=== PATIENT | female | born 1985 | race Caucasian/White ===

== ENCOUNTER 2021-10-14 05:13 | Emergency (ER) | payer SELFPAY ==
[2021-10-14 05:14] VITALS: BP 152/98; PULSE 96; RESP 20; TEMP 36.9; O2SAT 97; BMI 33.6
--- NOTE | 2021-10-14 05:40 | CT_ITS ---
FINAL REPORT TECHNIQUE: After the administration of oral and intravenous contrast, axial images were obtained through the abdomen and pelvis by computed tomography. The study was performed with techniques to keep radiation dose as low as reasonably achievable, (ALARA). Individual dose reduction techniques using automated exposure control or adjustment of mA and/or kV according to the patient's size were employed. CLINICAL HISTORY: abd pain w n/v FINDINGS: Abdomen: There are mild chronic changes in the lung bases. The liver parenchyma is homogeneous. There is sludge and stones within the gallbladder.. The spleen, pancreas, adrenals appear unremarkable. There is a well corticated low-attenuation structure within the right kidney measuring 3.8 x 2.6 cm. There is a 1.4 cm nonobstructing stone in the lower pole of the right kidney. The aorta is normal in caliber. There is no free fluid or adenopathy. Pelvis: The appendix is not identified and favored to be surgically absent. The uterus is present and lies midline. There are cysts or follicles in both ovaries. The urinary bladder is unremarkable. There is no free fluid or adenopathy. IMPRESSION: Sludge and stones in the gallbladder. 1.4 cm nonobstructing right renal stone. Benign-appearing right kidney cyst. Cysts or follicles in both ovaries. Reviewed, Interpreted and Dictated by Jun Venegas MD Transcribed by Isha Cowart Authenticated by Jun Venegas MD on 10/14/2021 08:47:56 AM [facility]
[2021-10-14 05:57] LABS: Occult Blood,Gastric Fluid Negative (Negative)
--- NOTE | 2021-10-14 06:11 | HMH.EDNVD ---
ED Disposition Condition on Discharge: Good - Critical Care Critical Care Time: No <Avila Ray Tish - Last Filed: 10/14/21 08:09> Condition on Discharge: Fair - Critical Care Critical Care Time: No <Jonh Mcnair - Last Filed: 10/14/21 11:27> Clinical Impression: IVDU (intravenous drug user) Abdominal pain Qualifiers: Abdominal location: generalized Qualified Code(s): R10.84 - Generalized abdominal pain Disposition: Left Against Medical Advice Instructions: DI for Acute Abdominal Pain Referrals: Provider,Referral, MD [Primary Care Provider] - Attestation: On 10/14/21, the high probability of a clinically significant, sudden or life threatening deterioration of the following system(s) required my full and direct attention, intervention and personal management. The time I documented below is in addition to time spent performing reported procedures but includes the following listed in this critical care notation. Medical Decision Making - Medical Records Medical records reviewed: Yes: I reviewed the patient's medical records. - Ward Inquiry Pt receiving controlled substance: No - Lab Data Lab results reviewed: Yes: I reviewed the patient's lab results. Result diagrams: 10/14/21 06:40 <Avila Ray Tish - Last Filed: 10/14/21 08:09> - Lab Data Result diagrams: 10/14/21 10:15 10/14/21 06:40 - CT Data CT Scan: Abdomen, Pelvis Time Received: 11:[address] Reviewed: Yes: I have reviewed the patient's CT results, I have viewed the radiologist's interpretation - Reevaluation(s) Time: 11:26 <Jonh Mcnair - Last Filed: 10/14/21 11:27> Vital Signs: 10/14/21 05:14 10/14/21 10:47 10/14/21 11:16 Temperature 98.4 F 98.4 F Temperature Source Oral Pulse Rate 89 89 Pulse Rate [Right] 96 H Respiratory Rate 20 18 18 Blood Pressure 130/88 130/88 Blood Pressure [Right Arm] 152/98 H Blood Pressure Mean 100 Blood Pressure Mean [Right Arm] 116 Blood Pressure Source [Right Arm] Automatic Cuff 02 Sat by Pulse Oximetry 97 98 Oxygen Delivery Method Room Air Room Air Room Air - Lab Data Lab Results 10/14/21 05:45: Gastric Occult Blood Negative 10/14/21 06:40: ESR 1 10/14/21 06:40: Sodium 138, Potassium 3.2 L, Chloride 98, Carbon Dioxide 30, Anion Gap 13.2, BUN 16, Creatinine 0.70, Estimated Creat Clear 153, Estimated GFR 95, Est GFR ( Amer) 115, Glucose 134 H, Calcium 8.7, Total Bilirubin 1.8 H, AST 30, ALT 30, Alkaline Phosphatase 138 H, C-Reactive Protein 46.5 H, Total Protein 8.9 H, Albumin 4.2, Globulin 4.7 H, Albumin/Globulin Ratio 0.9 L, Amylase 51, Lipase 31, Procalcitonin 2.38 H, Salicylates 1.0 L, Acetaminophen < 10 L 10/14/21 06:40: Plasma/Serum Alcohol < 10 10/14/21 06:40: Lactate 1.3 10/14/21 06:40: Serum HCG, Qual Negative 10/14/21 06:40: PT 12.1, INR 1.08 10/14/21 10:15: WBC Cancelled, Corrected WBC Cancelled, RBC Cancelled, Hgb Cancelled, Hct Cancelled, MCV Cancelled, MCH Cancelled, MCHC Cancelled, RDW Cancelled, Plt Count Cancelled, MPV Cancelled, Neut % (Auto) Cancelled, Lymph % (Auto) Cancelled, [place] % (Auto) Cancelled, Eos % (Auto) Cancelled, Baso % (Auto) Cancelled, Neut # (Auto) Cancelled, Lymph # (Auto) Cancelled, [place] # (Auto) Cancelled, Eos # (Auto) Cancelled, Baso # (Auto) Cancelled 10/14/21 10:15: WBC 14.3 H, RBC 5.82 H, Hgb 18.7 H, Hct 57.5 H, MCV 98.9, MCH 32.1 H, MCHC 32.5, RDW 14.8, Plt Count 296, MPV 7.8, Neut % (Auto) 83.2 H, Lymph % (Auto) 9.8 L, [place] % (Auto) 3.9, Eos % (Auto) 1.1, Baso % (Auto) 2.1 H, Neut # (Auto) 11.9 H, Lymph # (Auto) 1.4, [place] # (Auto) 0.6, Eos # (Auto) 0.2, Baso # (Auto) 0.3 H 10/14/21 10:46: Urine Color Dk yellow, Urine Appearance Clear, Urine pH 8.5, Ur Specific [place] 1.010, Urine Protein 1+, Urine Glucose (UA) Negative, Urine Ketones Negative, Urine Blood Trace-l, Urine Nitrate Positive, Urine Bilirubin Negative, Urine Urobilinogen 2.0, Ur Leukocyte Esterase Negative, Urine RBC Occasional, Urine WBC 5-10, Ur Squamous Epit
--- NOTE | 2021-10-14 06:20 | PC.NURSE ---
Difficulty placing IV, house notified on the need for u/s guided IV attempt. Labs delayed d/t this.
--- NOTE | 2021-10-14 06:40 | PC.NURSE ---
After 6 attempts, was able to place 22g PV to R wrist.
[2021-10-14 07:06] LABS: Chloride 98 mmol/L (98-107); Potassium 3.2 mmoL/L (3.5-5.1); Sodium 138 mmol/L (136-145)
[2021-10-14 07:08] LABS: Alanine Aminotransferase 30 U/L (12-78); Amylase 51 U/L (30-110); Aspartate Amino Transferase 30 U/L (14-36); Blood Urea Nitrogen 16 mg/dl (7-17); Creatinine Clearance Estimated 153 mL/min (50-200); Estimated Glomerular Filt Rate 95 ml/min (>60); GFR (African American) 115 ML/MIN (>60)
[2021-10-14 07:09] LABS: Albumin Level 4.2 g/dl (3.5-5.0); Albumin/Globulin Ratio 0.9 (1.1-1.8); Alkaline Phosphatase 138 U/L (38-126); Anion Gap 13.2 mEq/L (5-15); Bilirubin,Total 1.8 mg/dl (0.2-1.3); Calcium 8.7 mg/dl (8.4-10.2); Carbon Dioxide 30 mmol/L (22.0-30.0); Ethyl Alcohol < 10 mg/dl (0-10); Globulin 4.7 g/dL (1.3-3.2); Glucose 134 mg/dl (74-100); Lipase 31 U/L (23-300); Total Protein,Serum 8.9 g/dl (6.3-8.2)
[2021-10-14 07:10] LABS: Lactic Acid 1.3 mmol/L (0.7-2.1)
[2021-10-14 07:14] LABS: Acetaminophen < 10 ug/ml (10-30)
[2021-10-14 07:15] LABS: C-Reactive Protein 46.5 mg/L (0-4)
--- NOTE | 2021-10-14 07:15 | PC.NURSE ---
Notified radiology that pt has IV in place and ready when labs back for CT scan. Called Lab at this time and they have not began to run serum despite having labs sent @ 0640. Nuvia in the labs state they are spinning it now and will be about 10 min until complete. aware.
[2021-10-14 07:17] LABS: INR 1.08 (0.9-1.1); Prothrombin Time 12.1 seconds (10.1-12.5)
[2021-10-14 07:20] LABS: Erythrocyte Sedimentation Rate 1 mm/hr (0-20)
--- NOTE | 2021-10-14 07:43 | XR_ITS ---
FINAL REPORT TECHNIQUE: Chest PA & Lateral CLINICAL HISTORY: ivdu FINDINGS: 2 views of the chest were performed. The heart size is normal. The mediastinum is within normal limits. There is no acute cardiopulmonary process. There are no pleural effusions. There is no pneumothorax. The bony thorax appears intact. IMPRESSION: No acute cardiopulmonary process. Reviewed, Interpreted and Dictated by Jun Venegas MD Transcribed by Uriel Bird Authenticated by Jun Venegas MD on 10/14/2021 08:47:57 AM [facility]
[2021-10-14 07:53] LABS: Procalcitonin 2.38 ng/mL (0.0-2.0)
--- NOTE | 2021-10-14 07:55 | PC.NURSE ---
Pt has been tossing and turning in bed, and has been difficult to keep BP cuff in place.
[2021-10-14 07:59] LABS: HCG Qualitative, Serum Negative (Negative)
--- NOTE | 2021-10-14 08:05 | PC.NURSE ---
patient to radiology with broadcast operations technician by wheelchair
--- NOTE | 2021-10-14 08:21 | PC.NURSE ---
patient back from radiology by wheelchair with technical sales director
--- NOTE | 2021-10-14 09:46 | PC.NURSE ---
attempting to recollect cbc per ER MD request- lab staff states our cbc analyzer is now back up. States they have contacted [facility], states they did not have an eta on cbc results from specimen we had sent to them.
--- NOTE | 2021-10-14 09:57 | PC.NURSE ---
Contacted lab to see if they will come down and draw a CBC on patient. I had 1 unsuccessful attempt
[2021-10-14 10:31] LABS: Basophils # 0.3 K/mm3 (0-0.2); Basophils % 2.1 % (0.1-2.0); Eosinophils # 0.2 K/mm3 (0.0-0.4); Eosinophils % 1.1 % (0.1-12.0); Hematocrit 57.5 % (37.0-47.0); Lymphocytes # 1.4 K/mm3 (0.7-4.5); Lymphocytes % 9.8 % (10-50); Mean Corpuscular HGB Conc 32.5 g/dL (31.8-35.4); Mean Corpuscular Hemoglobin 32.1 pg (27.0-31.2); Mean Corpuscular Volume 98.9 fl (81-99); Mean Platelet Volume 7.8 fl (7.4-10.4); Monocytes # 0.6 K/mm3 (0.1-1.0); Monocytes % 3.9 % (1.7-9.3); Neutrophils # 11.9 K/mm3 (1.8-7.8); Neutrophils % 83.2 % (37.0-80.0); Platelet Count 296 K/mm3 (142-424); Red Blood Count 5.82 M/mm3 (4.20-5.40); Red Cell Distribution Width 14.8 % (11.5-17.5); White Blood Count 14.3 K/mm3 (4.8-10.8)
[2021-10-14 10:45] LABS: Hemoglobin 18.7 g/dL (12.2-16.2)
[2021-10-14 10:47] VITALS: BP 130/88; PULSE 89; RESP 18; O2SAT 98
--- NOTE | 2021-10-14 10:47 | PC.NURSE ---
urine specimen sent up at this time
[2021-10-14 10:50] LABS: Microscopic, Urine URINE MICROSCOPIC (MICROSCOPIC)
--- NOTE | 2021-10-14 10:53 | PC.NURSE ---
patient ambulatory back from restroom without complications; patient has been vomiting; awaiting lab results
[2021-10-14 10:57] LABS: Appearance,Urine CLEAR (Clear); Blood, Urine TRACE-L (Negative); Color,Urine DK YELLOW (Yellow); Glucose,Urine (UA) Negative (Negative); Ketones,Urine Negative (Negative); Leukocyte Esterase,Urine Negative (Negative); Nitrate,Urine POSITIVE (Negative); PH,Urine 8.5 (5.0-8.5); Protein,Urine 1+ (Negative)
--- NOTE | 2021-10-14 11:04 | PC.NURSE ---
contacted lab to check on status of urine results, states will be approx 5 minutes. Spoke with Ewelina
[2021-10-14 11:05] LABS: Bilirubin,Urine Negative (Negative); Urine Pregnancy, HCG Qual. Negative (Negative)
[2021-10-14 11:08] LABS: Bacteria,Urine 2+ /lpf; Mucus,Urine Trace /lpf
[2021-10-14 11:09] LABS: Amphetamine/Metha Screen,Urine Negative ng/ml (<1000)
[2021-10-14 11:10] LABS: Barbiturates Screen,Urine Negative ng/ml (<200); Benzodiazepines Screen,Urine Negative ng/ml (<200); RBC,Urine Occasional #/hpf (0-3)
[2021-10-14 11:11] LABS: Cannabinoid Screen,Urine Negative ng/ml (<50)
[2021-10-14 11:12] LABS: Cocaine Screen,Urine Negative ng/ml (<300); Methadone Screen,Urine Negative ng/ml (<300)
[2021-10-14 11:13] LABS: Opiate Screen,Urine Positive ng/ml (<300)
[2021-10-14 11:14] LABS: Phencyclidine Screen,Urine Negative ng/ml (<25)
[2021-10-14 11:16] VITALS: BP 130/88; PULSE 89; RESP 18; TEMP 36.9; O2SAT 98
--- NOTE | 2021-10-14 11:16 | PC.NURSE ---
pt left AMA at this time, AMA form signed. Pt states she is ready to go and does not want to wait on the rest of her results. Pt educated to follow up with primary MD and return to ED for new or worsening symptoms, pt verbalized understanding.
== END 2021-10-14 11:16 | disposition left against medical advice (07) ==
PROVIDERS: Emergency Provider Emergency Medicine
DX: R10.84 Generalized abdominal pain (principal); A49.8 Other bacterial infections of unspecified site; R11.2 Nausea with vomiting, unspecified; N28.1 Cyst of kidney, acquired; F10.20 Alcohol dependence, uncomplicated
CPT/HCPCS: 71046; 74177; 80053; 80305; 80329; 81001; 81025; 82150; 82272; 83605; 83690; 84145; 84703; 85025; 85610; 85651; 86140; 87086; 87088; 87186; 96361; 96365; 96366; 96374; 96375; 99285; G0328; J2405; Q9967

== ENCOUNTER → 2022-09-09 14:35 | Outpatient (CLI) | payer MEDICAID, SELFPAY ==
[2022-09-09 17:33] LABS: Basophils # 0.3 K/mm3 (0-0.2); Basophils % 1.8 % (0.1-2.0); Eosinophils # 0.3 K/mm3 (0.0-0.4); Hematocrit 54.7 % (37.0-47.0); Hemoglobin 17.8 g/dL (12.2-16.2); Lymphocytes # 5.4 K/mm3 (0.7-4.5); Lymphocytes % 38.6 % (10-50); Mean Corpuscular HGB Conc 32.6 g/dL (31.8-35.4); Mean Corpuscular Hemoglobin 33.4 pg (27.0-31.2); Mean Corpuscular Volume 102.6 fl (81-99); Mean Platelet Volume 8.2 fl (7.4-10.4); Monocytes # 0.6 K/mm3 (0.1-1.0); Monocytes % 4.5 % (1.7-9.3); Neutrophils # 7.5 K/mm3 (1.8-7.8); Neutrophils % 53.2 % (37.0-80.0); Platelet Count 339 K/mm3 (142-424); Red Blood Count 5.33 M/mm3 (4.20-5.40); Red Cell Distribution Width 14.1 % (11.5-17.5); White Blood Count 14.1 K/mm3 (4.8-10.8)
[2022-09-09 17:52] LABS: INR 0.97 (0.9-1.1); Prothrombin Time 10.5 seconds (10.1-12.5)
[2022-09-09 17:54] LABS: Chloride 99 mmol/L (98-107); Sodium 137 mmol/L (136-145)
[2022-09-09 17:55] LABS: Potassium 4.2 mmoL/L (3.5-5.1)
[2022-09-09 17:57] LABS: Alanine Aminotransferase 15 U/L (12-78); Albumin Level 4.5 g/dl (3.5-5.0); Albumin/Globulin Ratio 1.2 (1.1-1.8); Alkaline Phosphatase 98 U/L (38-126); Anion Gap 12.2 mEq/L (5-15); Aspartate Amino Transferase 21 U/L (14-36); Bilirubin,Total 1.1 mg/dl (0.2-1.3); Blood Urea Nitrogen 13 mg/dl (7-17); Carbon Dioxide 30 mmol/L (22.0-30.0); Estimated Glomerular Filt Rate 81 ml/min (>60); GFR (African American) 98 ML/MIN (>60); Globulin 3.8 g/dL (1.3-3.2); Total Protein,Serum 8.3 g/dl (6.3-8.2)
[2022-09-09 17:58] LABS: Calcium 8.8 mg/dl (8.4-10.2); Glucose 73 mg/dl (74-100)
[2022-09-11 09:36] LABS: Hep A Ab, Total Negative (Negative); Hep B Surface Ab, Qual Reactive (.)
[2022-09-11 12:07] LABS: HIV Screen 4th Generation wRfx Non Reactive (Non Reactive)
[2022-09-13 03:44] LABS: ALT (SGPT) P5P 15 IU/L (0-40); Alpha 2-Macroglobulins, Qn 166 mg/dL (110-276); Apolipoprotein A-1 180 mg/dL (116-209); Bilirubin, Total 0.6 mg/dL (0.0-1.2); Fibrosis Score 0.05 (0.00-0.21); GGT 20 IU/L (0-60); Haptoglobin 183 mg/dL (33-278); Necroinflammat Activity Grade A0-No activity (.); Necroinflammat Activity Score 0.04 (0.00-0.17)
[2022-09-19 02:14] LABS: Hepatitis B Surface Antigen Negative
== END ==
PROVIDERS: Visit Provider Nurse Practitioner Family
DX: R10.9 Unspecified abdominal pain (principal); F19.90 Other psychoactive substance use, unspecified, uncomplicated; Z11.4 Encounter for screening for human immunodeficiency virus [HIV]
CPT/HCPCS: 36415; 80053; 81596; 85025; 85610; 86703; 86706; 86708; 87340; 87522; 87902; G0432

== ENCOUNTER 2022-12-23 03:44 | Emergency (ER) | payer MEDICAID, SELFPAY ==
[2022-12-23 03:52] VITALS: BP 125/67; PULSE 93; RESP 20; TEMP 36.5; O2SAT 96; BMI 34.3
--- NOTE | 2022-12-23 03:58 | HMH.EDABDPAI ---
Discharge Plan Disposition Patient Disposition: Xfer Other Condition: Fair Prescriptions Prescriptions: No Action methadone 10 mg/5 mL Solution 80 mg PO DAILY Referrals Follow up/Referrals: Provider,Referral, MD [Primary Care Provider] - See instructions Clinical Impressions Clinical Impression: Obstruction of right ureteropelvic junction due to stone, Pyelonephritis of right kidney Instructions Patient Instructions: DI for Acute Abdominal Pain Discharge ED Provider: Stefania Cannon Abdominal Pain HPI General Chief Complaint: Abdominal Pain Stated Complaint: Right side pain, vomiting Time Seen by Provider: 12/23/22 03:52 Mode of Arrival: Ambulatory Source of Information: Patient and Significant Other Limitations: No Limitations Description of Symptoms (Recalled from ER Triage Doc. by RN): pt c/o RLQ and RUQ stabbing pain 04/11 ongoing x2d. pt states over the last 8hours she has had N/V. pt denies urinary symptoms. pt states she was constipated but had a normal BM about an hour ago. LMP December 01. pt reports drinking about a pint of liquor a day. last drink was 12/22 History of Present Illness HPI narrative: Patient is a 37-year-old female with complaint severe abdominal pain. Patient complains of abdominal pain on the right side of her abdomen. Patient stated that she drinks a pint of alcohol a day. She has been having pain for the past 2 days and then started vomiting for the past 8 hours. And then the pain got worse 10 out of 10. Patient describes the pain as dull type pressure pain. No urgency frequency burning on urination no blood in the urine. Her appendix is gone she has never had kidney stones before. Patient has had no pancreatitis in the past. Never been diagnosed with gallstones. She thought she was constipated but had a normal bowel movement today. She has had a normal appetite. complaint: abdominal pain Onset (ago): day(s) Consistency: constant Location: RUQ Severity: severe Severity scale (1-10): >10 Quality: aching and dull Radiation: R flank Migration to: R flank Relieving factors: nothing Exacerbating factors: nothing Associated symptoms: nausea and vomiting Related Data Home Medications Medication Instructions Recorded Confirmed methadone 10 mg/5 mL oral solution 80 mg PO DAILY substance cessation 12/23/22 12/23/22 Allergies Allergy/AdvReac Type Severity Reaction Status Date / Time Sulfa (Sulfonamide Allergy Verified 12/23/22 05:45 Antibiotics) [facility] Disclaimer: The information contained in this section may have been updated after the patient was seen, as this information can be updated by other users. Social History Smoking Status: Current every day smoker alcohol intake: current current occupational status: unemployed Travel in the last 8 weeks: None ROS Obtained: Yes All systems reviewed & no additional complaints except as documented Gastrointestinal Gastrointestingal: Reports abdominal pain and nausea Physical Exam General General appearance: alert and in distress Head Head exam: atraumatic, normocephalic and normal inspection Eye Eye exam: Present normal appearance, PERRL and EOMI; Absent scleral icterus or conjunctival redness ENT ENT exam: Present normal exam, normal oropharynx and mucous membranes dry Neck Neck exam: Present normal inspection, full ROM and trachea midline Chest Chest inspection: Present normal inspection and symmetric chest wall rise Respiratory Respiratory exam: Present normal lung sounds bilaterally Cardiovascular Cardiovascular exam: Present normal rhythm, tachycardia, normal heart sounds, +S1 and +S2 Abdominal Exam Abdominal exam: Present soft, tenderness (Epigastric right upper quadrant right flank tenderness.), guarding and normal bowel sounds; Absent distention, rebound or rigidity Extremities Exam Extremities exam: Present normal inspection, full
--- NOTE | 2022-12-23 04:15 | ECG_ITS ---
APPROVED REPORT Exam: Resting ECG HR:87 bpm ECG Measurements Heart Rate 87 AXES AZ 142 P 63 QRSd 94 QRS 92 QT 403 T 64 QTc 448 Conclusion SINUS RHYTHM bi-atrial abnormality RIGHT AXIS DEVIATION [QRS AXIS > 90] BORDERLINE ECG UNCONFIRMED REPORT Electronically signed by : Kaleb Peters MD 12/23/2022 21:28:45
--- NOTE | 2022-12-23 04:24 | XR_ITS ---
PROCEDURE INFORMATION: Exam: XR Chest Exam date and time: 12/23/2022 4:41 AM Age: 37 years old Clinical indication: Other: Epigastric pain TECHNIQUE: Imaging protocol: Radiologic exam of the chest. Views: 1 view. COMPARISON: CR XR CHEST 2V 10/14/2021 7:58 AM FINDINGS: Lungs: Unremarkable. No consolidation. Pleural spaces: Unremarkable. No pleural effusion. No pneumothorax. Heart/Mediastinum: Unremarkable. No cardiomegaly. Bones/joints: Unremarkable. IMPRESSION: No acute findings.
[2022-12-23 04:54] LABS: Amylase 40 U/L (30-110); Basophils # 0.1 K/mm3 (0-0.2); Basophils % 0.3 % (0.1-2.0); Eosinophils # 0.3 K/mm3 (0.0-0.4); Eosinophils % 1.3 % (0.1-12.0); Hematocrit 53.6 % (37.0-47.0); Hemoglobin 17.5 g/dL (12.2-16.2); Lipase 17 U/L (23-300); Lymphocytes # 0.6 K/mm3 (0.7-4.5); Lymphocytes % 2.4 % (10-50); Mean Corpuscular HGB Conc 32.6 g/dL (31.8-35.4); Mean Corpuscular Hemoglobin 32.5 pg (27.0-31.2); Mean Corpuscular Volume 99.9 fl (81-99); Mean Platelet Volume 7.9 fl (7.4-10.4); Monocytes # 0.6 K/mm3 (0.1-1.0); Monocytes % 2.7 % (1.7-9.3); Neutrophils # 22.2 K/mm3 (1.8-7.8); Neutrophils % 93.3 % (37.0-80.0); Platelet Count 197 K/mm3 (142-424); Red Blood Count 5.37 M/mm3 (4.20-5.40); Red Cell Distribution Width 13.5 % (11.5-17.5); White Blood Count 23.8 K/mm3 (4.8-10.8)
[2022-12-23 04:55] LABS: Activated Partial Thrombo Time 25.6 seconds (22.8-30.6)
[2022-12-23 04:56] LABS: Alanine Aminotransferase 25 U/L (12-78); Albumin Level 3.9 g/dl (3.5-5.0); Alkaline Phosphatase 103 U/L (38-126); Anion Gap 14.8 mEq/L (5-15); Aspartate Amino Transferase 32 U/L (14-36); Bilirubin,Total 0.7 mg/dl (0.2-1.3); Blood Urea Nitrogen 13 mg/dl (7-17); Carbon Dioxide 25 mmol/L (22.0-30.0); Chloride 101 mmol/L (98-107); Creatinine Clearance Estimated 111 mL/min (50-200); Estimated Glomerular Filt Rate 63 ml/min (>60); GFR (African American) 76 ML/MIN (>60); Globulin 3.8 g/dL (1.3-3.2); Glucose 163 mg/dl (74-100); Potassium 3.8 mmoL/L (3.5-5.1); Sodium 137 mmol/L (136-145); Total Protein,Serum 7.7 g/dl (6.3-8.2)
[2022-12-23 05:00] LABS: MANUAL DIFFERENTIAL MANUAL DIFFERENTIAL (MANUAL DIFF)
[2022-12-23 05:02] LABS: HCG Qualitative, Serum Negative (Negative)
[2022-12-23 05:03] LABS: Prothrombin Time 10.8 seconds (10.1-12.5)
[2022-12-23 05:04] LABS: Ethyl Alcohol < 10 mg/dl (0-10)
[2022-12-23 05:11] LABS: Troponin I < 0.01 ng/ml (0.00-0.034)
[2022-12-23 05:12] LABS: Microscopic, Urine URINE MICROSCOPIC (MICROSCOPIC)
--- NOTE | 2022-12-23 05:20 | PC.NURSE ---
MD Cannon placed 18g Left EJ IV cathether. pt tolerated well. pulled blood for 1 set of blood cultures and lactic.
[2022-12-23 05:23] LABS: Bilirubin,Urine Negative (Negative); Blood, Urine TRACE-I (Negative); Color,Urine YELLOW (Yellow); Glucose,Urine (UA) Negative (Negative); Ketones,Urine Negative (Negative); Leukocyte Esterase,Urine 1+ (Negative); Nitrate,Urine POSITIVE (Negative); PH,Urine 7.5 (5.0-8.5); Protein,Urine TRACE (Negative); Urobilinogen,Urine 0.2 EU/dl (0.2)
[2022-12-23 05:24] LABS: Appearance,Urine Cloudy (Clear); Bacteria,Urine 4+ /lpf
[2022-12-23 05:25] LABS: Barbiturates Screen,Urine Negative ng/ml (<200)
[2022-12-23 05:26] LABS: Amphetamine/Metha Screen,Urine Negative ng/ml (<1000); Benzodiazepines Screen,Urine Negative ng/ml (<200)
[2022-12-23 05:27] LABS: Methadone Screen,Urine Positive ng/ml (<300)
[2022-12-23 05:28] LABS: Cannabinoid Screen,Urine Positive ng/ml (<50); Cocaine Screen,Urine Negative ng/ml (<300)
[2022-12-23 05:29] LABS: Phencyclidine Screen,Urine Negative ng/ml (<25)
[2022-12-23 05:29] LABS: Procalcitonin 0.681 ng/mL (0.0-2.0)
[2022-12-23 05:35] LABS: ABG Base Excess 0.2 mmol/L (-2.4-2.3); ABG HCO3 25.1 mmhg (22.0-26.0); ABG Oxygen Saturation 89 % (90-100); ABG PCO2 42.2 mmhg (35.0-45.0); ABG PH 7.39 mmol/L (7.35-7.45); ABG PO2 51.4 mmhg (80-100); ABG TCO2 26.4 mmhg (23-27)
--- NOTE | 2022-12-23 05:36 | CT_ITS ---
PROCEDURE INFORMATION: Exam: CT Abdomen And Pelvis With Contrast Exam date and time: 12/23/2022 5:50 AM Age: 37 years old Clinical indication: Abdominal pain TECHNIQUE: Imaging protocol: Computed tomography of the abdomen and pelvis with contrast. Radiation optimization: All CT scans at this facility use at least one of these dose optimization techniques: automated exposure control; mA and/or kV adjustment per patient size (includes targeted exams where dose is matched to clinical indication); or iterative reconstruction. Contrast material: ISOVUE; Contrast volume: 100 ml; Contrast route: IV; REPORTING DATA: Count of CT and Cardiac NM exams in prior 12 months: This patient has received 0 known CTs and 0 known cardiac nuclear medicine studies in the 12 months prior to the current study. COMPARISON: CT ABDOMEN PELVIS W CON 10/14/2021 8:08 AM FINDINGS: Liver: Normal. No mass. Gallbladder and bile ducts: Normal. No calcified stones. No ductal dilation. Pancreas: Normal. No ductal dilation. Spleen: Normal. No splenomegaly. Adrenal glands: Normal. No mass. Kidneys and ureters: There is a 10 mm stone at the right UPJ causing moderate right-sided hydronephrosis. There is also delayed enhancement of the right kidney and there are some patchy parenchymal areas of decreased enhancement extending into the cortex suggestive of underlying pyelonephritis. A septated cyst is again seen in the lower pole on the right unchanged from prior. Stomach and bowel: Unremarkable. No obstruction. No mucosal thickening. Appendix: No evidence of appendicitis. Intraperitoneal space: Unremarkable. No free air. No significant fluid collection. Vasculature: Unremarkable. No abdominal aortic aneurysm. Lymph nodes: Unremarkable. No enlarged lymph nodes. Urinary bladder: Unremarkable as visualized. Reproductive: Unremarkable as visualized. Bones/joints: Unremarkable. No acute fracture. Soft tissues: Unremarkable. IMPRESSION: 10 mm stone at the right UPJ with moderate right-sided hydronephrosis. Patchy parenchymal enhancement of the right kidney is suggestive of underlying pyelonephritis.
[2022-12-23 05:37] LABS: Allen's Test Acceptable
[2022-12-23 05:37] LABS: Lactic Acid 1.8 mmol/L (0.7-2.1)
[2022-12-23 05:38] LABS: Source Right Brachial
[2022-12-23 05:38] LABS: Opiate Screen,Urine Positive ng/ml (<300)
[2022-12-23 05:41] LABS: Lymphocytes % 11 % (10-50); Monocytes % 3 % (2-9); Neutrophils % 86 % (42-76); Total Cells Counted 100
[2022-12-23 05:42] LABS: Macrocytosis 1+; Platelet Estimate Normal
--- NOTE | 2022-12-23 05:44 | CT_ITS ---
PROCEDURE INFORMATION: Exam: CTA Chest With Contrast Exam date and time: 12/23/2022 5:50 AM Age: 37 years old Clinical indication: Shortness of breath; Additional info: SOB TECHNIQUE: Imaging protocol: Computed tomographic angiography of the chest with contrast. Exam focused on the arteries. 3D rendering (Not supervised by radiologist): MIP and/or 3D reconstructed images were created by the technologist. Radiation optimization: All CT scans at this facility use at least one of these dose optimization techniques: automated exposure control; mA and/or kV adjustment per patient size (includes targeted exams where dose is matched to clinical indication); or iterative reconstruction. Contrast material: ISOVUE; Contrast volume: 100 ml; Contrast route: INTRAVENOUS (IV); REPORTING DATA: Count of CT and Cardiac NM exams in prior 12 months: This patient has received 0 known CTs and 0 known cardiac nuclear medicine studies in the 12 months prior to the current study. COMPARISON: CR XR CHEST PORTABLE 12/23/2022 4:41 AM FINDINGS: Pulmonary arteries: Normal. No pulmonary emboli. Aorta: Unremarkable. No aortic aneurysm. No aortic dissection. Lungs: Dependent atelectasis and hypoinflation. No consolidation. No masses. Pleural spaces: Unremarkable. No pneumothorax. No pleural effusion. Heart: No coronary calcification is noted. . No cardiomegaly. No pericardial effusion. Lymph nodes: Unremarkable. No enlarged lymph nodes. Bones/joints: Unremarkable. No acute fracture. Soft tissues: Liver is diffusely low in density. Right-sided hydronephrosis and patchy parenchymal enhancement of the right kidney.. IMPRESSION: 1. No evidence of pulmonary embolus or other acute process. 2. Right-sided hydronephrosis with UPJ stone and likely pyelonephritis see concurrently performed abdominal CT scan.
[2022-12-23 06:02] LABS: D-Dimer 1.35 ug/mL (0.0-0.5)
[2022-12-23 06:23] VITALS: BP 119/70; PULSE 88; RESP 18; O2SAT 97
[2022-12-23 06:25] LABS: NT Pro Brain Natriuretic Pep. 647 pg/mL (0-125)
--- NOTE | 2022-12-23 06:26 | PC.NURSE ---
Assisted MD while she attempted to gain IV access. MD used the ultrasound machine and stuck the pt 5 times but was unsuccessful.
[2022-12-23 06:30] VITALS: BP 114/55; PULSE 82; O2SAT 97
[2022-12-23 06:30] LABS: Coronavirus 19, PCR Not Detected (NotDetected); Influenza A, PCR Not Detected (NotDetected); Influenza B, PCR Not Detected (NotDetected)
--- NOTE | 2022-12-23 06:49 | PC.NURSE ---
called [facility] they will call us back
--- NOTE | 2022-12-23 06:54 | PC.NURSE ---
called [facility] at this time
--- NOTE | 2022-12-23 07:00 | PC.NURSE ---
Assumed patient care
--- NOTE | 2022-12-23 07:00 | PC.NURSE ---
[facility] will call back
--- NOTE | 2022-12-23 07:13 | PC.NURSE ---
Pt's friend & newspaper delivery driver, Avila, calling for an update of pt's condition. She gave consent to give health update to. He was given an update
--- NOTE | 2022-12-23 07:19 | PC.NURSE ---
Dr. Cannon s[facility]w [facility] for [facility].
--- NOTE | 2022-12-23 07:20 | PC.NURSE ---
Assumed patient care.
--- NOTE | 2022-12-23 07:41 | PC.NURSE ---
[facility] called back and FISH BONING MACHINE FEEDER overrode decision and accepted patient. Patient is to be transfered ER to ER with disc and reports.
--- NOTE | 2022-12-23 08:12 | PC.NURSE ---
Report given [facility]
--- NOTE | 2022-12-23 08:15 | PC.NURSE ---
Requested BLS transport with [facility]
--- NOTE | 2022-12-23 08:20 | PC.NURSE ---
per pt request, updated her family (Avila) that pt is going to [facility]. Pt aware I spoke to the family and updated at bs with pt
[2022-12-23 08:46] VITALS: BP 124/74; PULSE 82; RESP 16; TEMP 36.5; O2SAT 99
== END 2022-12-23 08:50 | disposition other institution (70) ==
PROVIDERS: Emergency Provider Emergency Medicine
DX: F17.210 Nicotine dependence, cigarettes, uncomplicated; N13.2 Hydronephrosis with renal and ureteral calculous obstruction; N12 Tubulo-interstitial nephritis, not specified as acute or chronic; R10.11 Right upper quadrant pain; R10.31 Right lower quadrant pain
CPT/HCPCS: 36415; 71045; 71275; 74177; 80053; 80305; 81001; 82150; 82803; 83605; 83690; 83880; 84145; 84484; 84703; 85007; 85025; 85378; 85610; 85730; 87040; 87077; 87086; 87088; 87186; 87636; 93005; 96361; 96365; 96374; 96375; 96376; 99291; C9803; J2405; J2543; Q9967; U0003; U0005